=== PATIENT | male | born 1995 | race Two or more races ===

== ENCOUNTER 2020-03-19 23:37 | Emergency (ER) | payer OTHER ==
[~2020-03-19] VITALS: Ht 172.7 cm; Wt 76.3 kg
--- NOTE | 2020-03-20 00:54 | NUR ---
pt to room from lobby
[2020-03-20] MEDS ORDERED: SULFAMETH./TRIMETHOPRIM DS 800MG/160MG TABLET ONE (01:26)
[2020-03-20] MEDS ORDERED: CEPHALEXIN 500 MG CAPSULE ONE (01:26)
[2020-03-20] MEDS ORDERED: OXYcodone/APAP 5/325MG TABLET PO ONE (01:30)
[2020-03-20] MEDS ORDERED: CEPHALEXIN 500 MG CAPSULE PO ONE (01:30)
[2020-03-20] MEDS ORDERED: SULFAMETH./TRIMETHOPRIM DS 800MG/160MG TABLET PO ONE (01:30)
[2020-03-20] MEDS ORDERED: LIDOCAINE 2%, 20ML SQ ONE (01:30)
[2020-03-20] MEDS ORDERED: LIDOCAINE-MPF 1%, 5ML ONE (01:43)
[2020-03-20] MEDS ORDERED: OXYcodone/APAP 5/325MG TABLET ONE (01:43)
[2020-03-20] MEDS ORDERED: LIDOCAINE-MPF 1%, 5ML INFIL ONE (02:00)
[2020-03-20 02:38] VITALS: BP 134/87
== END 2020-03-20 02:39 ==
LOC: ED 03-20 00:07
DX: L03.115 Cellulitis of right lower limb (principal)
CPT/HCPCS: 10060; 99284